=== PATIENT | female | born 1975 | race Caucasian/White ===

== ENCOUNTER 2018-11-15 09:36 | Emergency (ER) | payer OTHER ==
[~2018-11-15] VITALS: Ht 170.2 cm; Wt 93.0 kg
[~2018-11-15 09:36] MED LIST: CELEXA 10 MG TA10 M1 PO; CELEXA 20 MG TA20 M1 PO; DILTIAZEM ER120 M1 PO; GLUCOPHAGE500 MG PO; MACRODANTIN50 MG PO; OMPERAZOLE PO; PERCOCET 5-3251 EACH PO; ZOCOR 10 MG TAB10 MG PO
[2018-11-15] MEDS ORDERED: COZAAR 25 MG TA25 M1 PO (09:44)
[2018-11-15 09:57] LABS: ABSOLUTE NEUTROPHILS 7.6 thou/uL (1.4-8.2); BASOPHILS 0.5 % (0.0-2.0); EOSINOPHILS 1.2 % (0.0-3.0); HEMATOCRIT 44.2 % (37.0-47.0); HEMOGLOBIN 14.6 gm/dL (12.0-15.0); LYMPHOCYTES 27.1 % (24.0-44.0); MCH 28.6 pg (26.0-34.0); MCV 86.7 fL (80.0-100.0); MONOCYTES 4.6 % (1.0-8.0); PLATELET COUNT 262 thou/uL (150-400); POLYS 66.6 % (36.0-66.0); RDW 13.2 % (10.5-14.5); WBC 11.5 thou/uL (4.0-11.0)
[2018-11-15 10:11] LABS: ANION GAP 7 mmol/L (7-16); BUN 13 mg/dL (7-18); CALCIUM 9.7 mg/dL (8.5-10.1); CHLORIDE 104 mmol/L (98-107); CO2 29 mmol/L (21-32); CREATININE 0.9 mg/dL (0.6-1.0); GLUCOSE 108 mg/dL (74-106); POTASSIUM 4.1 mmol/L (3.5-5.1); SODIUM 140 mmol/L (136-145)
[2018-11-15 10:21] LABS: ALBUMIN 3.9 g/dL (3.4-5.0); SGOT 12 U/L (15-37); SGPT 31 U/L (30-65); TOTAL BILIRUBIN 0.4 mg/dL (<0.1-1.0); TOTAL PROTEIN 7.2 g/dL (6.4-8.2); TROPONIN-I <0.06 ng/mL (<0.06)
[2018-11-15 12:42] VITALS: BP 105/67
--- NOTE | 2018-11-16 08:17 | EKG ---
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: RANULFO : 1975 Requested By: Tia East Order Number: [id number] MD: Keith Loza Measurements Intervals [place] Rate: 79 P: 9 NM: 140 QRS: 70 QRSD: 91 T: 37 QT: 388 QTc: 445 Interpretive Statements Sinus rhythm Normal tracing Compared to ECG 08/07/2008 17:56:23 No significant change was found Electronically Signed On 11-16-2018 8:17:11 CDT by Keith Loza [email or web address] ��������������������������������������������� <ELECTRONICALLY SIGNED> ���������������������������������������� By: Keith Loza MD, [facility] ��������������������������������������������� 11/16/18 0817 0942 0942 Keith Loza MD, FACC /EPI
== END 2018-11-15 12:44 | disposition home or self-care (01) ==
LOC: ER 09:36
PROVIDERS: Emergency Medicine
DX: R07.89 Other chest pain (principal); I10 Essential (primary) hypertension; F17.210 Nicotine dependence, cigarettes, uncomplicated; Z88.5 Allergy status to narcotic agent; Z91.040 Latex allergy status; Z88.2 Allergy status to sulfonamides; Z90.710 Acquired absence of both cervix and uterus; Z87.442 Personal history of urinary calculi; Z90.49 Acquired absence of other specified parts of digestive tract; Z98.890 Other specified postprocedural states